=== PATIENT | female | born 1985 | race Caucasian/White ===

== ENCOUNTER 2018-08-09 19:40 | Emergency (ER) | payer BC ==
[~2018-08-09] VITALS: Ht 170.2 cm; Wt 108.9 kg
[~2018-08-09 19:40] MED LIST: AZIT500 PO; CIPR500 PO; Cleocin HCl150 MG PO; HYDACE5 PO; IBUP800 PO; MECL25 PO; ONDA4 SL; ONDA4ODT MM; PRENATAL GUMMI1 EACH PO; PRENZ; PROC25S PR; PROG100 PO; PROM25 PO; RXONDA4ODT MM; Verotin-Gr Cap1 EACH PO; Zofran Odt4 MG SL
[2018-08-09] MEDS ORDERED: ACET325 PO (19:48)
[2018-08-09 20:16] LABS: Influenza A Positive (NEGATIVE); Influenza B Negative (NEGATIVE)
[2018-08-09] MEDS ORDERED: Tamiflu75 MG PO (20:26)
== END 2018-08-09 20:35 | disposition home or self-care (01) ==
LOC: ER 19:40
PROVIDERS: Physician Assistant
DX: J10.1 Influenza due to other identified influenza virus with other respiratory manifestations (principal); Z88.0 Allergy status to penicillin; Z88.2 Allergy status to sulfonamides; Z88.5 Allergy status to narcotic agent; Z88.8 Allergy status to other drugs, medicaments and biological substances
CPT/HCPCS: 87804; 99283

== ENCOUNTER 2019-10-23 17:05 | Emergency (ER) | payer BC ==
[~2019-10-23 17:05] MED LIST changes: +ACET325 PO; +Tamiflu75 MG PO
[2019-10-23] MEDS ORDERED: Cleocin HCl300 MG PO (17:40)
[2019-10-23] MEDS ORDERED: IBU600 MG PO (17:40)
== END 2019-10-23 19:46 | disposition home or self-care (01) ==
DX: K02.9 Dental caries, unspecified (principal); Z88.0 Allergy status to penicillin; Z88.2 Allergy status to sulfonamides; Z88.5 Allergy status to narcotic agent; Z88.8 Allergy status to other drugs, medicaments and biological substances

== ENCOUNTER → 2022-07-16 | Outpatient (CLI) | payer BC ==
[~2022-07-16] MED LIST changes: +Cleocin HCl300 MG PO; +IBU600 MG PO
[2022-07-16 17:36] LABS: Protein, Urine Random 28.1 mg/dL (0.0-11.9); Protein/Creat Ratio, Ur Random 0.2
== END | disposition home or self-care (01) ==
LOC: LAB SHORT 15:36
PROVIDERS: Obstetrics & Gynecology
DX: O30.049 Twin pregnancy, dichorionic/diamniotic, unspecified trimester (principal)
CPT/HCPCS: 82570; 84156

== ENCOUNTER → 2022-10-15 | Outpatient (CLI) | payer BC ==
[2022-10-15 15:39] LABS: BASOPHILS ABSOLUTE AUTO 0.03 K/mm3 (0.00-0.23); BASOPHILS PERCENT AUTO 0 % (0-2); EOSINOPHILS ABSOLUTE AUTO 0.06 K/mm3 (0.00-0.68); EOSINOPHILS PERCENT AUTO 1 % (0-6); Hematocrit 34.4 % (33.0-51.0); Hemoglobin 11.1 g/dL (11.5-16.0); IMMATURE GRAN PERCENT AUTO 1 % (0-1); LYMPHOCYTES ABSOLUTE AUTO 1.12 K/mm3 (0.84-5.20); LYMPHOCYTES PERCENT AUTO 12 % (21-46); MONOCYTES ABSOLUTE AUTO 0.36 K/mm3 (0.16-1.47); MONOCYTES PERCENT AUTO 4 % (4-13); Mean Corpuscular HGB 28.5 pg (26.0-34.0); Mean Corpuscular HGB Conc 32.3 g/dL (31.5-36.5); Mean Corpuscular Volume 88 fL (80-100); NEUTROPHILS ABSOLUTE AUTO 7.79 K/mm3 (1.96-9.15); NEUTROPHILS PERCENT AUTO 82 % (41-73); Platelet Count 143 K/mm3 (150-400); RDW Coefficient Variation 14.7 % (11.7-14.2); RDW Standard Deviation 47.6 fL (35.1-46.3); Red Blood Cell Count 3.89 M/mm3 (3.80-5.20); White Blood Cell Count 9.46 K/mm3 (4.00-11.30)
== END | disposition home or self-care (01) ==
LOC: LAB 12:00 → LAB SHORT 12:00
PROVIDERS: Obstetrics & Gynecology
DX: O09.521 Supervision of elderly multigravida, first trimester (principal)
CPT/HCPCS: 82950; 85025

== ENCOUNTER → 2022-11-06 | Outpatient (CLI) | payer BC ==
[2022-11-06 18:05] LABS: Source, Urine Clean Catch
[2022-11-06 20:08] LABS: Appearance, Urine Clear (Clear); Bilirubin, Urine Neg (Neg); Blood, Urine 4+ (Neg); Color, Urine Yellow (P-Yellow); Glucose Qualitative, Urine Neg (Neg); Ketones, Urine 2+ (Neg); Leukocyte Esterase, Urine Neg (Neg); Nitrite, Urine Neg (Neg); Protein, Urine 2+ (Neg); Specific Gravity, Urine 1.015 (1.003-1.022); Urobilinogen, Urine NORM (Normal)
[2022-11-06 20:25] LABS: Amorphous Light (0-Heavy); Bacteria Few /hpf; Calcium Oxalate Crystals Few /hpf; Squamous Epithelial Cells Mod /hpf (Few); White Blood Cells, Urine Not Seen /hpf (0-5)
== END | disposition home or self-care (01) ==
LOC: LAB 18:04 → LAB SHORT 18:04
PROVIDERS: Obstetrics & Gynecology
DX: R31.29 Other microscopic hematuria (principal)
CPT/HCPCS: 81001